=== PATIENT | female | born 1985 | race Caucasian/White ===

== ENCOUNTER 2020-04-03 06:55 | Inpatient (IN) ==
[2020-04-03] MEDS ORDERED: Sodium Citrate/Citric Acid LIQ 15 ML UDC PO ONE (07:56)
[2020-04-03] MEDS ORDERED: Buffered Lidocaine 1% SYRIN 1 ml INTRADERM ONE (07:56)
[2020-04-03] MEDS ORDERED: Lactated Ringers 1000 ml BAG 1,000 ML IV SCH ×2 (08:00→12:00)
[2020-04-03 08:20] LABS: Hematocrit 39 % (35-47); Hemoglobin 13.5 g/dL (12.0-16.0); Mean Corpuscular HGB Conc 35 g/dL (31-36); Mean Corpuscular Hemoglobin 31 pg (27-31); Mean Corpuscular Volume 89 fL (80-97); Mean Platelet Volume 10.6 fL (7.4-10.4); Platelet Count 196 10^3/uL (150-450); Red Cell Distribution Width 14 % (10-15); White Blood Count 9.4 10^3/uL (3.5-10.8)
[2020-04-03 08:25] LABS: ABS Eosinophils 0.2 10^3/ul (0-0.6); ABS Lymphocytes 1.6 10^3/ul (1.0-4.8); ABS Monocytes 0.6 10^3/ul (0-0.8); ABS Neutrophils 6.9 10^3/ul (1.5-7.7); Eosinophil % 2.1 %; Nucleated Red Blood Cells % 0.1
[2020-04-03 08:41] LABS: Albumin 3.1 g/dL (3.2-5.2); BUN/Creatinine Ratio 10.4 (8-20); Calcium 8.9 mg/dL (8.6-10.3); EGFR African American 102.6 (>60); EGFR Non-African American 84.8 (>60); Globulin 3.1 g/dL (2-4); Potassium 4.1 mmol/L (3.5-5.0); Total Bilirubin 0.4 mg/dL (0.2-1.0); Total Protein 6.2 g/dL (6.4-8.9); Uric Acid 7.5 mg/dL (2.3-6.6)
[2020-04-03] MEDS ORDERED: Oxytocin 10 UNITS/ML 1 ML VIAL ONE (08:59)
[2020-04-03] MEDS ORDERED: ceFAZolin 2 GM PREMIX 2 GM/50 ML BAG IVPB ONE (09:00)
[2020-04-03] MEDS ORDERED: Morphine PF AMP (0.5MG/ML) 5 MG/10 ML AMP ONE (09:01)
[2020-04-03] MEDS ORDERED: Bupivacaine 0.5% SDV PF 30ML VIAL ONE (09:01)
[2020-04-03] MEDS ORDERED: EPHEDrine (Pressors) 50 MG/ML VIAL ONE (09:28)
[2020-04-03] MEDS ORDERED: Ondansetron 4 mg VIAL 2 MG/ML 2 ml VIAL ONE (09:31)
[2020-04-03] MEDS ORDERED: Dexamethasone IV 4 MG/ML VIAL 1 ml VIAL ONE (09:31)
[2020-04-03] MEDS ORDERED: Phenylephrine 40 mcg/mL 10mL (400mcg) SYRINGE ONE (09:32)
[2020-04-03 09:43] LABS: Large Platelets Present
[2020-04-03] MEDS ORDERED: Naloxone 0.4 mg VIAL 0.4 mg/ml 1 ml VIAL IV PRN ×2 (11:07)
[2020-04-03] MEDS ORDERED: DiMENhydriNATE IV 50 mg/ml 1 ml VIAL IV PUSH PRN (11:07)
[2020-04-03] MEDS ORDERED: diPHENhydraMINE IV 50 MG/ML 1 ml VIAL (BENADRYL) IV PRN (11:07)
[2020-04-03] MEDS ORDERED: fentaNYL 100 mcg/2 ml 50 MCG/ML VIAL IV PRN (11:07)
[2020-04-03] MEDS ORDERED: HYDROcodone/ACETAMIN 5/325 mg TAB PO PRN (11:07)
[2020-04-03] MEDS ORDERED: Ondansetron 4 mg VIAL 2 MG/ML 2 ml VIAL IV PRN (11:07)
[2020-04-03] MEDS ORDERED: Witch Hazel PAD JAR TOPICAL PRN (11:16)
[2020-04-03] MEDS ORDERED: Glycerin ADULT 2.4 gm SUPP PR PRN (11:16)
[2020-04-03] MEDS ORDERED: Dibucaine 1% OINT 28.35 GM TUBE PR PRN (11:16)
[2020-04-04 08:17] LABS: ABS Eosinophils 0.1 10^3/ul (0-0.6); ABS Lymphocytes 1.6 10^3/ul (1.0-4.8); ABS Monocytes 0.9 10^3/ul (0-0.8); ABS Neutrophils 9.4 10^3/ul (1.5-7.7); Eosinophil % 0.8 %; Hematocrit 32 % (35-47); Hemoglobin 11.2 g/dL (12.0-16.0); Lymphocyte % 13.6 %; Mean Corpuscular HGB Conc 35 g/dL (31-36); Mean Corpuscular Hemoglobin 31 pg (27-31); Mean Corpuscular Volume 89 fL (80-97); Mean Platelet Volume 10.6 fL (7.4-10.4); Platelet Count 153 10^3/uL (150-450); Red Blood Count 3.57 10^6 /uL (3.70-4.87); Red Cell Distribution Width 14 % (10-15)
[2020-04-05 08:02] VITALS: BP 139/86
== END 2020-04-05 12:38 | disposition home or self-care (01) | DRG 540 ==
LOC: MCHOB 06:55
PROVIDERS: ADMIT Obstetrics & Gynecology; ATTEND Obstetrics & Gynecology

== ENCOUNTER 2021-02-10 00:48 | Observation (INO) ==
[2021-02-10] MEDS ORDERED: HYDROmorphone 0.5 MG/0.5 ML SYRINGE IV SLOW PU PRN (01:31)
[2021-02-10] MEDS ORDERED: D5W 1/2 NS 40 Meq KCL 1000 ml 1,000 ML IV SCH (02:00)
[2021-02-10] MEDS ORDERED: NS 0.9% 100 ml BAG 100 ML ONE (02:49)
[2021-02-10] MEDS: Piperacillin/Tazobactam VIAL 3.375 GM in NS 0.9% 100 ml BAG 100 ML IVPB SCH ×3 (02:54→19:13)
[2021-02-10] MEDS ORDERED: Rocuronium 50 mg VIAL 10 mg/ml 5 ml VIAL (50 mg) ONE ×2 (16:18→18:05)
[2021-02-10] MEDS ORDERED: fentaNYL 100 mcg/2 ml 50 MCG/ML VIAL ONE ×2 (16:18→19:40)
[2021-02-10] MEDS ORDERED: Midazolam 2 mg/2 ml VIAL 1 mg/ml 2 ml VIAL (2 mg) ONE (16:18)
[2021-02-10] MEDS ORDERED: Propofol 10 MG/ML 20 ML BTL ONE (16:18)
[2021-02-10] MEDS ORDERED: Lidocaine 2% PF 5 ML VIAL ONE (16:18)
[2021-02-10] MEDS ORDERED: Bupivacaine 0.25% SDV 30 ML ONE (16:26)
[2021-02-10] MEDS ORDERED: Naloxone 0.4 mg VIAL 0.4 mg/ml 1 ml VIAL IV PRN (17:51)
[2021-02-10] MEDS ORDERED: Ondansetron 4 mg VIAL 2 MG/ML 2 ml VIAL IV PRN (17:51)
[2021-02-10] MEDS ORDERED: Acetaminophen IV 1 GM/100ML 1,000 MG/100 ML VIAL IVPB PRN (17:51)
[2021-02-10] MEDS ORDERED: HYDROmorphone 1 MG/1 ML SYRINGE IV PRN (17:51)
[2021-02-10] MEDS ORDERED: Ondansetron 4 mg VIAL 2 MG/ML 2 ml VIAL ONE (18:44)
[2021-02-10] MEDS ORDERED: EPHEDrine (Pressors) 50 MG/ML VIAL ONE (18:44)
[2021-02-10] MEDS ORDERED: Dexamethasone IV 4 MG/ML VIAL 1 ml VIAL ONE (18:44)
[2021-02-10] MEDS: fentaNYL 100 mcg/2 ml 50 MCG/ML VIAL IV PRN ×2 (19:41→19:56)
[2021-02-10 19:47] VITALS: BP 107/64
== END 2021-02-10 20:55 | disposition home or self-care (01) ==
LOC: SSU 00:48 → ED 00:48 → SSU 02:14
PROVIDERS: ADMIT Surgery; ATTEND Surgery Surgical Critical Care